=== PATIENT | female | born 1945 | race Caucasian/White ===

== ENCOUNTER 2019-03-15 17:55 | Emergency (ER) | payer MEDICARE, OTHER ==
[~2019-03-15] VITALS: Ht 157.5 cm; Wt 60.2 kg
[~2019-03-15 17:55] MED LIST: ARIP15TA3 PO; ATOR10TA PO; LEVO100T78 PO; LORA-660 PO; NITR100C6 PO
[2019-03-15 18:04] VITALS: BP 120/61
[2019-03-15] MEDS ORDERED: SULF1TAB49 PO (18:30)
[2019-03-15] MEDS ORDERED: CEPH-572 PO (18:30)
== END 2019-03-15 18:39 | disposition home or self-care (01) ==
LOC: ER 17:56
DX: L08.89 Other specified local infections of the skin and subcutaneous tissue (principal); E78.00 Pure hypercholesterolemia, unspecified; E03.9 Hypothyroidism, unspecified; G89.29 Other chronic pain; Z86.14 Personal history of Methicillin resistant Staphylococcus aureus infection; Z88.1 Allergy status to other antibiotic agents; Z79.899 Other long term (current) drug therapy
CPT/HCPCS: 99283

== ENCOUNTER 2020-02-09 12:01 | Emergency (ER) | payer MEDICARE, OTHER ==
[~2020-02-09] VITALS: Ht 154.9 cm; Wt 59.1 kg
[2020-02-09 12:48] VITALS: BP 145/72
== END 2020-02-09 14:02 | disposition home or self-care (01) ==
LOC: ER 12:01
DX: B34.9 Viral infection, unspecified (principal); Z20.828 Contact with and (suspected) exposure to other viral communicable diseases; E78.00 Pure hypercholesterolemia, unspecified; E03.9 Hypothyroidism, unspecified; G89.29 Other chronic pain; Z86.14 Personal history of Methicillin resistant Staphylococcus aureus infection; Z98.890 Other specified postprocedural states; Z79.899 Other long term (current) drug therapy; Z88.1 Allergy status to other antibiotic agents
CPT/HCPCS: 36415; 99282; 99283

== ENCOUNTER 2021-06-01 17:15 | Emergency (ER) | payer MEDICARE, OTHER ==
[~2021-06-01] VITALS: Ht 154.9 cm; Wt 63.4 kg
[~2021-06-01 17:15] MED LIST changes: +LORA-657 PO; -LORA-660 PO
[2021-06-01 17:52] LABS: ALANINE AMINOTRANSFERASE 30 U/L (12-78); ALKALINE PHOSPHATASE 72 IU/L (46-116); ANION GAP 8 (8-16); ASPARTATE AMINO TRANSFERASE 17 U/L (10-37); BILIRUBIN,TOTAL 0.2 MG/DL (0.1-1.0); BLOOD UREA NITROGEN 21 MG/DL (7-18); CALCIUM 9.5 MG/DL (8.5-10.1); CHLORIDE 102 MMOL/L (99-107); CREATININE 0.75 MG/DL (0.40-0.90); GLUCOSE 129 MG/DL (70-104); POTASSIUM 3.4 MMOL/L (3.5-5.1); SODIUM 133 MMOL/L (135-145); eGFR 75 ML/MIN
[2021-06-01 17:55] LABS: BASOPHILS % (AUTO) 0.3 % (0-1); EOSINOPHILS % (AUTO) 0.5 % (0-6); NEUTROPHILS # (AUTO) 5.9 X10'3 (1.8-7.7); RED BLOOD COUNT 3.95 X10'6 (4.20-5.60)
[2021-06-01 17:56] LABS: HEMATOCRIT 39.7 % (35.0-45.0); HEMOGLOBIN 13.3 g/dl (12.0-16.0); LYMPHOCYTES # (AUTO) 1.4 X10'3 (1.1-4.8); LYMPHOCYTES % (AUTO) 17.9 % (21-51); MEAN CORPUSCULAR HEMOGLOBIN 33.7 PG (27.0-31.0); MEAN CORPUSCULAR HGB CONC 33.5 g/dL (33.0-36.5); MEAN CORPUSCULAR VOLUME 100.5 FL (78-98); MONOCYTES # (AUTO) 0.5 X10'3 (0-0.9); MONOCYTES % (AUTO) 6.6 % (2-12); NEUTROPHILS % (AUTO) 74.7 % (42-75); PLATELET COUNT 187 X10'3 (140-440); RED CELL DISTRIBUTION WIDTH 13.3 % (11.5-14.5); WHITE BLOOD COUNT 7.9 X10'3 (4.5-11.0)
[2021-06-01] MEDS ORDERED: cephalexin 250mg capsule PO ONE (20:00)
[2021-06-01] MEDS ORDERED: sulfamethoxazole/trimethoprim DS (800/160mg) tablet PO ONE (20:00)
[2021-06-01] MEDS ORDERED: SULF1TAB49 PO (20:04)
[2021-06-01] MEDS ORDERED: CEPH-585 PO (20:04)
[2021-06-01 20:30] VITALS: BP 130/57
[2021-06-01 22:03] LABS: ANISOCYTOSIS 1+; LARGE PLATELETS FEW; PLATELET ESTIMATE NORMAL
== END 2021-06-01 20:31 | disposition home or self-care (01) ==
LOC: ER 17:16
DX: L03.116 Cellulitis of left lower limb (principal); E78.00 Pure hypercholesterolemia, unspecified; E03.9 Hypothyroidism, unspecified; G89.29 Other chronic pain; Z86.14 Personal history of Methicillin resistant Staphylococcus aureus infection; Z88.1 Allergy status to other antibiotic agents; Z79.2 Long term (current) use of antibiotics; Z79.899 Other long term (current) drug therapy
CPT/HCPCS: 36415; 80053; 85008; 85025; 99283

== ENCOUNTER 2021-06-09 09:38 | Emergency (ER) | payer MEDICARE, OTHER ==
[~2021-06-09] VITALS: Ht 154.9 cm; Wt 63.3 kg
[~2021-06-09 09:38] MED LIST changes: +CEPH-585 PO; +SULF1TAB49 PO
[2021-06-09] MEDS ORDERED: LIDOcaine 5% patch TP ONE (10:25)
[2021-06-09] MEDS ORDERED: BUPIVAcaine/PF 7.5mg/ml (0.75%) 10ml vial IJ ONE (10:25)
--- NOTE | 2021-06-09 11:02 | NUR ---
Pt resting comfortably in bed, no needs.
[2021-06-09 11:34] VITALS: BP 113/54
== END 2021-06-09 11:42 | disposition home or self-care (01) ==
LOC: ER 09:39
DX: M25.511 Pain in right shoulder (principal); E78.00 Pure hypercholesterolemia, unspecified; E03.9 Hypothyroidism, unspecified; G89.29 Other chronic pain; Z86.14 Personal history of Methicillin resistant Staphylococcus aureus infection; Z98.890 Other specified postprocedural states; Z88.1 Allergy status to other antibiotic agents; Z79.899 Other long term (current) drug therapy; Z79.2 Long term (current) use of antibiotics
CPT/HCPCS: 20552; 73030; 99284

== ENCOUNTER 2021-06-29 12:29 | Emergency (ER) | payer MEDICARE, OTHER ==
[~2021-06-29] VITALS: Ht 154.9 cm; Wt 59.1 kg
[~2021-06-29 12:29] MED LIST changes: -SULF1TAB49 PO
[2021-06-29 12:30] VITALS: BP 132/69
[2021-06-29] MEDS ORDERED: triamcinolone acetonide 40mg/ml inj IM ONE (13:45)
[2021-06-29] MEDS ORDERED: CYCL-1 PO (13:53)
== END 2021-06-29 14:16 | disposition home or self-care (01) ==
LOC: ER 12:30
DX: M25.511 Pain in right shoulder (principal); M54.2 Cervicalgia; R25.2 Cramp and spasm; E78.00 Pure hypercholesterolemia, unspecified; E03.9 Hypothyroidism, unspecified; G89.29 Other chronic pain; Z86.14 Personal history of Methicillin resistant Staphylococcus aureus infection; Z88.1 Allergy status to other antibiotic agents; Z79.899 Other long term (current) drug therapy; Z79.2 Long term (current) use of antibiotics
CPT/HCPCS: 96372; 99283; J3301

== ENCOUNTER 2021-09-03 12:03 | Emergency (ER) | payer MEDICARE, OTHER ==
[~2021-09-03] VITALS: Ht 157.5 cm; Wt 59.1 kg
[~2021-09-03 12:03] MED LIST changes: +CYCL-1 PO
[2021-09-03 12:23] VITALS: BP 112/53
[2021-09-03] MEDS ORDERED: ketorolac trometh inj. 60 MG/2 ML VIAL IM ONE (13:45)
[2021-09-03] MEDS ORDERED: METH-797 PO (15:10)
[2021-09-03] MEDS ORDERED: oxyCODONE IR 5mg (immed. release) tablet PO ONE (15:25)
== END 2021-09-03 15:32 | disposition home or self-care (01) ==
LOC: ER 12:03
DX: S29.012A Strain of muscle and tendon of back wall of thorax, initial encounter (principal); E78.00 Pure hypercholesterolemia, unspecified; E03.9 Hypothyroidism, unspecified; G89.29 Other chronic pain; Z98.890 Other specified postprocedural states; Z79.899 Other long term (current) drug therapy; Z88.1 Allergy status to other antibiotic agents; X50.1XXA Overexertion from prolonged static or awkward postures, initial encounter; Y93.89 Activity, other specified; Y92.89 Other specified places as the place of occurrence of the external cause; Y99.9 Unspecified external cause status
CPT/HCPCS: 96372; 99284; J1885

== ENCOUNTER 2021-11-23 12:51 | Emergency (ER) | payer MEDICARE, OTHER ==
[~2021-11-23] VITALS: Ht 154.9 cm; Wt 59.1 kg
[~2021-11-23 12:51] MED LIST changes: +METH-797 PO
[2021-11-23 13:27] VITALS: BP 124/64
[2021-11-23] MEDS ORDERED: ibuprofen 200mg tablet PO ONE (15:15)
[2021-11-23] MEDS ORDERED: IBUP-1984 PO (15:58)
== END 2021-11-23 16:14 | disposition home or self-care (01) ==
LOC: ER 12:52
DX: S80.02XA Contusion of left knee, initial encounter (principal); S80.01XA Contusion of right knee, initial encounter; M65.261 Calcific tendinitis, right lower leg; Y99.8 Other external cause status; G89.29 Other chronic pain; M54.9 Dorsalgia, unspecified; E78.00 Pure hypercholesterolemia, unspecified; E03.9 Hypothyroidism, unspecified; F32.A Depression, unspecified; Z88.1 Allergy status to other antibiotic agents; Z79.899 Other long term (current) drug therapy; Z79.1 Long term (current) use of non-steroidal anti-inflammatories (NSAID); Z86.14 Personal history of Methicillin resistant Staphylococcus aureus infection; X58.XXXA Exposure to other specified factors, initial encounter; Y93.89 Activity, other specified; Y92.89 Other specified places as the place of occurrence of the external cause
CPT/HCPCS: 73564; 93971; 99284; A6449

== ENCOUNTER 2021-12-07 17:10 | Emergency (ER) | payer MEDICARE, OTHER ==
[~2021-12-07] VITALS: Ht 154.9 cm; Wt 59.1 kg
[2021-12-07 17:22] VITALS: BP 116/75
== END 2021-12-07 19:25 | disposition left against medical advice (07) ==
LOC: ER 17:11
DX: M25.571 Pain in right ankle and joints of right foot (principal); Z53.21 Procedure and treatment not carried out due to patient leaving prior to being seen by health care provider

== ENCOUNTER → 2022-05-30 | Day surgery (SDC) | payer MEDICARE, OTHER ==
[2022-05-21 14:34] LABS: BASOPHILS % (AUTO) 0.3 % (0-1); EOSINOPHILS % (AUTO) 0.5 % (0-6); LYMPHOCYTES # (AUTO) 1.9 X10'3 (1.1-4.8); LYMPHOCYTES % (AUTO) 26.9 % (21-51); MEAN CORPUSCULAR HEMOGLOBIN 32.1 PG (27.0-31.0); MEAN CORPUSCULAR HGB CONC 33.3 g/dL (33.0-36.5); MEAN CORPUSCULAR VOLUME 96.3 FL (78-98); MONOCYTES # (AUTO) 0.4 X10'3 (0-0.9); MONOCYTES % (AUTO) 5.8 % (2-12); NEUTROPHILS # (AUTO) 4.8 X10'3 (1.8-7.7); NEUTROPHILS % (AUTO) 66.5 % (42-75); PRE OP HEMATOCRIT 39.7 % (35.0-45.0); PRE OP HEMOGLOBIN 13.2 g/dL (12.0-16.0); PRE OP PLATELET COUNT 183 X10'3 (140-440); RED BLOOD COUNT 4.12 X10'6 (4.20-5.60); RED CELL DISTRIBUTION WIDTH 14.8 % (11.5-14.5)
[2022-05-21 14:39] LABS: ALBUMIN 4.1 G/DL (3.4-5.0); ALBUMIN/GLOBULIN RATIO 1.2 (1.1-1.5); ALKALINE PHOSPHATASE 88 IU/L (46-116); BLOOD UREA NITROGEN 27 MG/DL (7-18); BUN/CREATININE RATIO 31.4 (6.6-38.0); CHLORIDE 104 MMOL/L (99-107); CREATININE 0.86 MG/DL (0.40-0.90); PRE OP ALT 29 U/L (30-65); PRE OP ANION GAP 7 (8-16); PRE OP AST 16 U/L (10-37); PRE OP BILIRUB, TOTAL 0.3 MG/DL (0.0-1.0); PRE OP GLUCOSE 124 MG/DL (70-104); PRE OP POTASSIUM 3.4 MMOL/L (3.4-5.1); PRE OP SODIUM 139 MMOL/L (135-145); TOTAL CARBON DIOXIDE 27.7 MMOL/L (24-32); TOTAL PROTEIN 7.6 G/DL (6.4-8.2); eGFR 64 ML/MIN
[2022-05-21 15:09] LABS: LARGE PLATELETS FEW; PLATELET ESTIMATE NORMAL
[~2022-05-30] VITALS: Ht 154.9 cm; Wt 61.2 kg
[~2022-05-30] MED LIST changes: +ARIPIPRAZOLE 15 MG TABLET PO SCH; -ATOR10TA PO; +ATOR40TA72 PO; -CEPH-585 PO; -CYCL-1 PO; +FURO40TA4 PO; +HYDROcodone/acetaminophen 10/325mg tab PO PRN; +HYDROmorphone 1 mg/ml syringe IV PRN; +HYDROmorphone inj. 0.5 MG/0.5 ML DISP.SYRIN IV PRN; -LEVO100T78 PO; +LEVO75TA7 PO; -LORA-657 PO; -METH-797 PO; -NITR100C6 PO; +acetaminophen 325mg tablet PO ONE; +acetaminophen 325mg tablet PO PRN; +ascorbic acid 500mg tablet PO SCH; +aspirin 325mg tablet PO SCH; +atorvastatin 20mg tablet PO SCH; +bisacodyl 10mg suppository rectal RC PRN; +ceFAZolin/D5W- 1GM premix 50 ML IV SCH; +cefazolin 2gm/D5W 100mL 100 ML IV ONE; +celeCOXIB 100mg capsule PO ONE; +celeCOXIB 100mg capsule PO SCH; +diphenhydrAMINE 25mg capsule PO PRN; +famotidine 20mg tablet PO ONE; +furosemide 40mg tablet PO SCH; +gabapentin 300mg capsule PO ONE; +gabapentin 300mg capsule PO SCH; +levoTHYROXINE 75mcg tablet PO SCH; +magnesium hydroxide 30ml (MOM) UD suspension PO PRN; +metoclopramide 5 mg/ml inj IV ONE; +multivitamins, therapeutics tablet PO SCH; +naloxone 0.4 mg/ml inj IV PRN; +ondansetron/PF 4mg/2ml inj IV PRN; +oxyCODONE SR 10mg (sust. release) tab -2 tabs (20mg) PO ONE; +potassium cl 20mEq in 1/2 NS 1,000 ML IV SCH; +ringers solution, lacted 1,000 ML IV SCH; +sennosides 8.6mg tablet PO SCH; +tranexamic acid inj. 0 MG in normal saline 100ml IV soln 100 ML IV ONE; +tranexamic acid inj. 1,000 MG in normal saline IV soln 100ML IV ONE; +vancomycin/NS 1 GM ADD-VANTAGE 250 ML IV SCH; +vancomycin/NS 1 GM in NS 250 ML IV ONE
== END | disposition home or self-care (01) ==
LOC: PAS 06:54
PROVIDERS: ATTEND Orthopaedic Surgery
DX: M17.11 Unilateral primary osteoarthritis, right knee (principal); Z53.8 Procedure and treatment not carried out for other reasons; M19.072 Primary osteoarthritis, left ankle and foot; M19.011 Primary osteoarthritis, right shoulder; M16.11 Unilateral primary osteoarthritis, right hip; F39 Unspecified mood [affective] disorder; E03.9 Hypothyroidism, unspecified; Z88.8 Allergy status to other drugs, medicaments and biological substances; Z90.710 Acquired absence of both cervix and uterus; Z98.890 Other specified postprocedural states; Z72.89 Other problems related to lifestyle; Z79.899 Other long term (current) drug therapy; Z79.82 Long term (current) use of aspirin; Z91.040 Latex allergy status; Z88.0 Allergy status to penicillin; Z82.49 Family history of ischemic heart disease and other diseases of the circulatory system
CPT/HCPCS: 36415; 80053; 85025; 86885; 86900; 86901; 87081; J3490; J7120; 85008

== ENCOUNTER 2022-07-27 13:20 | Emergency (ER) | payer MEDICARE, OTHER ==
[~2022-07-27] VITALS: Ht 157.5 cm; Wt 61.0 kg
[~2022-07-27 13:20] MED LIST changes: -ARIPIPRAZOLE 15 MG TABLET PO SCH; -HYDROcodone/acetaminophen 10/325mg tab PO PRN; -HYDROmorphone 1 mg/ml syringe IV PRN; -HYDROmorphone inj. 0.5 MG/0.5 ML DISP.SYRIN IV PRN; -acetaminophen 325mg tablet PO ONE; -acetaminophen 325mg tablet PO PRN; -ascorbic acid 500mg tablet PO SCH; -aspirin 325mg tablet PO SCH; -atorvastatin 20mg tablet PO SCH; -bisacodyl 10mg suppository rectal RC PRN; -ceFAZolin/D5W- 1GM premix 50 ML IV SCH; -cefazolin 2gm/D5W 100mL 100 ML IV ONE; -celeCOXIB 100mg capsule PO ONE; -celeCOXIB 100mg capsule PO SCH; -diphenhydrAMINE 25mg capsule PO PRN; -famotidine 20mg tablet PO ONE; -furosemide 40mg tablet PO SCH; -gabapentin 300mg capsule PO ONE; -gabapentin 300mg capsule PO SCH; -levoTHYROXINE 75mcg tablet PO SCH; -magnesium hydroxide 30ml (MOM) UD suspension PO PRN; -metoclopramide 5 mg/ml inj IV ONE; -multivitamins, therapeutics tablet PO SCH; -naloxone 0.4 mg/ml inj IV PRN; -ondansetron/PF 4mg/2ml inj IV PRN; -oxyCODONE SR 10mg (sust. release) tab -2 tabs (20mg) PO ONE; -potassium cl 20mEq in 1/2 NS 1,000 ML IV SCH; -ringers solution, lacted 1,000 ML IV SCH; -sennosides 8.6mg tablet PO SCH; -tranexamic acid inj. 0 MG in normal saline 100ml IV soln 100 ML IV ONE; -tranexamic acid inj. 1,000 MG in normal saline IV soln 100ML IV ONE; -vancomycin/NS 1 GM ADD-VANTAGE 250 ML IV SCH; -vancomycin/NS 1 GM in NS 250 ML IV ONE
[2022-07-27 13:24] VITALS: BP 124/60
[2022-07-27] MEDS ORDERED: TRAM50TA2 PO (16:07)
--- NOTE | 2022-07-28 11:40 | NUR ---
0950-PATIENT CALLED IN REGARDING [facility] IN [place] IS NOT OPEN TODAY AND SHE NEEDS TO SALES CORRESPONDENT RX FOR PAIN MED. PATIENT WOULD LIKE MED CALLED IN TO [facility] IN [place]. 1030-[facility] IN [place] IS CLOSED TODAY. 1040-[facility] TO [facility] [address]. STAFF THERE STATES THAT THE [facility] IN [facility] WILL BE OPENING AT 1100 TODAY. 1045-PATIENT CALLED AND INFORMED THAT [facility] IN [place] WILL BE OPENING AFTER 1100. 1130-TELEPHONE CALL FROM [facility] IN [place]. STAFF IS INFORMING THAT PATIENT IS CURRENTLY TAKING PERCOCET RX FOR PAIN (WITH REFILLS). TRAMADOL RX WILL NOT BE FILLED AT THIS TIME.
== END 2022-07-27 16:27 | disposition home or self-care (01) ==
LOC: ER 13:21
DX: S80.01XA Contusion of right knee, initial encounter (principal); S80.02XA Contusion of left knee, initial encounter; E03.9 Hypothyroidism, unspecified; E78.00 Pure hypercholesterolemia, unspecified; G89.29 Other chronic pain; M54.9 Dorsalgia, unspecified; F32.A Depression, unspecified; Z86.14 Personal history of Methicillin resistant Staphylococcus aureus infection; Z88.1 Allergy status to other antibiotic agents; Z79.899 Other long term (current) drug therapy; W18.30XA Fall on same level, unspecified, initial encounter; Y93.89 Activity, other specified; Y92.89 Other specified places as the place of occurrence of the external cause; Y99.8 Other external cause status
CPT/HCPCS: 73564; 99284

== ENCOUNTER 2023-04-17 15:26 | Emergency (ER) | payer MEDICARE, OTHER ==
[~2023-04-17] VITALS: Ht 152.4 cm; Wt 61.3 kg
[~2023-04-17 15:26] MED LIST changes: +ACET-1084 PO; +BACL-11 PO; +IBUP-1985 PO; +TRAZ-251 PO; +VENL37.589 PO
[2023-04-17 17:30] VITALS: BP 176/95; PULSE 115; RESP 33; O2SAT 95
[2023-04-17 17:44] LABS: LYMPHOCYTES # (AUTO) 0.7 X10'3 (1.1-4.8); NEUTROPHILS # (AUTO) 13.1 X10'3 (1.8-7.7); WHITE BLOOD COUNT 14.2 X10'3 (4.5-11.0)
[2023-04-17 17:45] LABS: BASOPHILS % (AUTO) 0.1 % (0-1); EOSINOPHILS % (AUTO) 0.1 % (0-6); HEMATOCRIT 37.6 % (35.0-45.0); HEMOGLOBIN 12.4 g/dl (12.0-16.0); LYMPHOCYTES % (AUTO) 5.1 % (21-51); MEAN CORPUSCULAR HEMOGLOBIN 31.4 PG (27.0-31.0); MEAN CORPUSCULAR HGB CONC 32.9 g/dL (33.0-36.5); MEAN CORPUSCULAR VOLUME 95.5 FL (78-98); MEAN PLATELET VOLUME 11.2 FL (7.4-10.4); MONOCYTES # (AUTO) 0.3 X10'3 (0-0.9); MONOCYTES % (AUTO) 2.4 % (2-12); NEUTROPHILS % (AUTO) 92.3 % (42-75); PLATELET COUNT 154 X10'3 (140-440); RED BLOOD COUNT 3.94 X10'6 (4.20-5.60)
[2023-04-17 18:06] LABS: ALANINE AMINOTRANSFERASE 39 U/L (12-78); ALBUMIN 3.8 G/DL (3.4-5.0); ALBUMIN/GLOBULIN RATIO 1.2 (1.1-1.5); ALKALINE PHOSPHATASE 68 IU/L (46-116); ANION GAP 11 (8-16); ASPARTATE AMINO TRANSFERASE 22 U/L (10-37); BILIRUBIN,TOTAL 0.3 MG/DL (0.1-1.0); BLOOD UREA NITROGEN 0 MG/DL (7-18); CHLORIDE 102 MMOL/L (99-107); MAGNESIUM 2.3 MG/DL (1.5-2.4); POTASSIUM 3.8 MMOL/L (3.5-5.1); PRO BRAIN NATRIURETIC PEPTIDE 225 PG/ML (0-450); SODIUM 138 MMOL/L (135-145); TOTAL CARBON DIOXIDE 25.1 MMOL/L (24-32)
[2023-04-17 18:23] LABS: CALCIUM 8.7 MG/DL (8.5-10.1); CREATININE 0.73 MG/DL (0.40-0.90); GLUCOSE 109 MG/DL (70-104); eCRCL 46 ML/MIN; eGFR 77 ML/MIN
[2023-04-18 05:41] VITALS: TEMP 98
== END 2023-04-18 05:45 | disposition home or self-care (01) ==
LOC: ER 15:27
DX: I49.9 Cardiac arrhythmia, unspecified (principal); E78.00 Pure hypercholesterolemia, unspecified; E03.9 Hypothyroidism, unspecified; G89.29 Other chronic pain; Z95.5 Presence of coronary angioplasty implant and graft; Z86.14 Personal history of Methicillin resistant Staphylococcus aureus infection; Z88.0 Allergy status to penicillin; Z88.1 Allergy status to other antibiotic agents; Z91.040 Latex allergy status; Z79.899 Other long term (current) drug therapy
CPT/HCPCS: 36415; 71045; 80053; 83735; 83880; 84484; 85025; 93005; 99285

== ENCOUNTER 2024-03-26 10:56 | Emergency (ER) | payer MEDICARE, OTHER ==
[~2024-03-26] VITALS: Ht 152.4 cm; Wt 63.6 kg
[2024-03-26] MEDS: ondansetron 4mg rapidly disintigrating tab PO ONE (12:29)
[2024-03-26] MEDS: HYDROmorphone inj. 0.5 MG/0.5 ML DISP.SYRIN IM ONE (12:29)
[2024-03-26 13:21] VITALS: BP 125/76; PULSE 79; RESP 16; TEMP 98; O2SAT 99
== END 2024-03-26 13:23 | disposition home or self-care (01) ==
LOC: ER 10:57
DX: M25.511 Pain in right shoulder (principal); E78.00 Pure hypercholesterolemia, unspecified; E03.9 Hypothyroidism, unspecified; G89.29 Other chronic pain; M54.9 Dorsalgia, unspecified; I25.2 Old myocardial infarction; F32.A Depression, unspecified; Z98.890 Other specified postprocedural states; Z88.0 Allergy status to penicillin; Z88.1 Allergy status to other antibiotic agents; Z91.040 Latex allergy status; Z79.899 Other long term (current) drug therapy
CPT/HCPCS: 73030; 96372; 99283; J1171

== ENCOUNTER 2024-03-30 09:38 | Outpatient (CLI) | payer MEDICARE, OTHER | END 2024-03-30 23:59 | disposition home or self-care (01) | LOC: RAD 09:38 | PROVIDERS: ATTEND Orthopaedic Surgery | DX: M19.011 Primary osteoarthritis, right shoulder (principal); M25.511 Pain in right shoulder; J43.9 Emphysema, unspecified; Z96.611 Presence of right artificial shoulder joint | CPT/HCPCS: 73200 ==

== ENCOUNTER 2024-05-04 07:30 | Inpatient (IN) | payer MEDICARE, OTHER ==
[~2024-05-04] VITALS: Ht 152.4 cm; Wt 68.7 kg
[~2024-05-04 07:30] MED LIST changes: -ACET-1084 PO; -BACL-11 PO; -IBUP-1985 PO; -TRAZ-251 PO
[2024-05-24 14:25] LABS: EOSINOPHILS # (AUTO) 0.1 X10'3 (0-0.9); LYMPHOCYTES # (AUTO) 1.9 X10'3 (1.1-4.8)
[2024-05-24 14:26] LABS: BASOPHILS % (AUTO) 0.5 % (0-1); EOSINOPHILS % (AUTO) 0.9 % (0-6); LYMPHOCYTES % (AUTO) 24.7 % (21-51); MEAN CORPUSCULAR HEMOGLOBIN 31.6 PG (27.0-31.0); MEAN CORPUSCULAR HGB CONC 32.4 g/dL (33.0-36.5); MEAN CORPUSCULAR VOLUME 97.4 FL (78-98); MEAN PLATELET VOLUME 10.6 FL (7.4-10.4); MONOCYTES # (AUTO) 0.5 X10'3 (0-0.9); MONOCYTES % (AUTO) 6.3 % (2-12); NEUTROPHILS # (AUTO) 5.3 X10'3 (1.8-7.7); NEUTROPHILS % (AUTO) 67.6 % (42-75); PRE OP HEMOGLOBIN 12.6 g/dL (12.0-16.0); PRE OP PLATELET COUNT 229 X10'3 (140-440); PRE OP WHITE BLOOD COUNT 7.9 10'3 (4.8-10.8); RED CELL DISTRIBUTION WIDTH 14.6 % (11.5-14.5)
[2024-05-24 14:36] LABS: ALBUMIN/GLOBULIN RATIO 1.1 (1.1-1.5); ALKALINE PHOSPHATASE 94 IU/L (46-116); BLOOD UREA NITROGEN 20 MG/DL (7-18); BUN/CREATININE RATIO 30.3 (10.0-20.0); CALCIUM 8.8 MG/DL (8.5-10.1); CHLORIDE 104 MMOL/L (99-107); CREATININE 0.66 MG/DL (0.40-0.90); PRE OP ALT 32 U/L (30-65); PRE OP ANION GAP 11 (8-16); PRE OP AST 16 U/L (10-37); PRE OP BILIRUB, TOTAL 0.2 MG/DL (0.0-1.0); PRE OP GLUCOSE 94 MG/DL (70-104); PRE OP POTASSIUM 3.9 MMOL/L (3.4-5.1); PRE OP SODIUM 139 MMOL/L (135-145); TOTAL CARBON DIOXIDE 24.1 MMOL/L (24-32); TOTAL PROTEIN 7.5 G/DL (6.4-8.2); eGFR 87 ML/MIN
[2024-05-24 15:10] LABS: PLATELET ESTIMATE NORMAL
[2024-05-24 15:11] LABS: GIANT PLATELET FEW; LARGE PLATELETS FEW
[2024-05-28] VITALS (28 sets, daily range): BP systolic 98–141; BP diastolic 37–87; PULSE 51–75; RESP 11–19; TEMP 97.2–98.4; O2SAT 94–99
[2024-05-28] MEDS: ceFAZolin 2gm in dextrose, iso 50 ML IV ONE (05:30)
[2024-05-28] MEDS: ringers solution, lacted 1,000 ML IV SCH ×2 (08:26→10:35)
[2024-05-28] MEDS: famotidine 20mg tablet PO ONE (08:26)
[2024-05-28] MEDS: tranexamic acid 650mg tablet PO ONE (08:34)
[2024-05-28] MEDS: vancomycin/NS 1 GM ADD-VANTAGE 250 ML IV ONE (08:40)
[2024-05-28] MEDS ORDERED: vancomycin 1,000mg inj ONE (08:47)
[2024-05-28] MEDS ORDERED: ROPIVAcaine 0.5% (5mg/ml) 30ml vial ONE (08:48)
[2024-05-28] MEDS ORDERED: sevoflurane 250ml liquid IH ONE (09:50)
[2024-05-28] MEDS ORDERED: midazolam 1 mg/ML 2ml injection ONE (10:01)
[2024-05-28] MEDS ORDERED: fentaNYL /PF 50mcg/ml 5ml ampule ONE (10:27)
[2024-05-28] MEDS ORDERED: proCHLORperazine 10 MG/2 ml inj IV PRN (10:35)
[2024-05-28] MEDS ORDERED: ondansetron/PF 4mg/2ml inj IV PRN ×2 (10:35→13:05)
[2024-05-28] MEDS ORDERED: morphine 4 MG/ML inj SYRINge IV PRN (10:35)
[2024-05-28] MEDS ORDERED: hydrALAZINE 20mg/ml inj. IV PRN (10:35)
[2024-05-28] MEDS ORDERED: meperidine/PF 25mg/ml syringe IV PRN (10:35)
[2024-05-28] MEDS ORDERED: morphine 2 MG/ML inj. syringe IV PRN (10:35)
[2024-05-28] MEDS ORDERED: HYDROmorphone/PF 0.2 MG/ML SYRINGE IV PRN (10:35)
[2024-05-28] MEDS ORDERED: labetalol 20mg/4ml (5mg/ml) syringe IV PRN (10:35)
[2024-05-28] MEDS ORDERED: LIDOcaine 2% (20mg/ml) 5ml vial ONE (10:37)
[2024-05-28] MEDS ORDERED: ondansetron/PF 4mg/2ml inj ONE (10:37)
[2024-05-28] MEDS ORDERED: propofol inj 20 ML IV ONE (10:37)
[2024-05-28] MEDS ORDERED: dexamethasone sod phosphate 4mg/ml inj. ONE (10:38)
[2024-05-28] MEDS ORDERED: rocuronium 10mg/ml inj IV ONE (10:38)
[2024-05-28] MEDS: BUPIVACAINE/MELOXICAM 14 ML VIAL IL ONE (11:01)
[2024-05-28] MEDS ORDERED: glycopyrrolate 0.2mg/ml inj ONE (11:48)
[2024-05-28] MEDS ORDERED: neostigmine methylsulfate 1 MG/ML 10ml vial ONE (11:49)
[2024-05-28] MEDS: acetaminophen 1,000mg/100ml IV 100 ML IV PRN (12:41)
[2024-05-28] MEDS: HYDROmorphone/PF 0.2 MG/ML SYRINGE IV PRN (12:42)
[2024-05-28] MEDS ORDERED: diphenhydrAMINE 25mg capsule PO PRN ×2 (13:05)
[2024-05-28] MEDS ORDERED: acetaminophen 325mg tablet PO PRN (13:05)
[2024-05-28] MEDS ORDERED: magnesium hydroxide 30ml (MOM) UD suspension PO PRN (13:05)
[2024-05-28] MEDS ORDERED: bisacodyl 10mg suppository rectal RC PRN (13:05)
[2024-05-28] MEDS ORDERED: naloxone 0.4 mg/ml inj IV PRN (13:05)
[2024-05-28] MEDS ORDERED: HYDROmorphone 1 mg/ml syringe IV PRN (13:05)
[2024-05-28] MEDS: acetaminophen 325mg tablet PO SCH (16:08)
[2024-05-28] MEDS: potassium cl 20mEq in 1/2 NS 1,000 ML IV SCH (16:09)
[2024-05-28] MEDS: ceFAZolin/D5W- 1GM premix 50 ML IV SCH (16:09)
[2024-05-28] MEDS: oxyCODONE IR 5mg (immed. release) tablet PO PRN (17:33)
[2024-05-28] MEDS: sennosides 8.6mg tablet PO SCH (20:27)
[2024-05-28] MEDS: vancomycin/NS 1 GM ADD-VANTAGE 250 ML IV SCH (20:29)
[2024-05-28] MEDS: HYDROmorphone inj. 0.5 MG/0.5 ML DISP.SYRIN IV PRN (21:48)
[2024-05-29] MEDS: oxyCODONE IR 5mg (immed. release) tablet PO PRN (01:52)
[2024-05-29 02:00] VITALS: BP 142/95; PULSE 55; RESP 18; TEMP 97.6; O2SAT 95
[2024-05-29 06:00] VITALS: BP 109/43; PULSE 59; RESP 16; TEMP 96.8; O2SAT 99
[2024-05-29 06:31] LABS: BASOPHILS % (AUTO) 0.1 % (0-1); EOSINOPHILS % (AUTO) 0.1 % (0-6); HEMATOCRIT 31.3 % (35.0-45.0); HEMOGLOBIN 10.3 g/dl (12.0-16.0); LYMPHOCYTES # (AUTO) 1.3 X10'3 (1.1-4.8); LYMPHOCYTES % (AUTO) 9.8 % (21-51); MEAN CORPUSCULAR HEMOGLOBIN 32.1 PG (27.0-31.0); MEAN CORPUSCULAR HGB CONC 32.9 g/dL (33.0-36.5); MEAN CORPUSCULAR VOLUME 97.6 FL (78-98); MEAN PLATELET VOLUME 11.2 FL (7.4-10.4); MONOCYTES % (AUTO) 7.4 % (2-12); NEUTROPHILS # (AUTO) 11.2 X10'3 (1.8-7.7); NEUTROPHILS % (AUTO) 82.6 % (42-75); PLATELET COUNT 169 X10'3 (140-440); RED BLOOD COUNT 3.21 X10'6 (4.20-5.60); RED CELL DISTRIBUTION WIDTH 14.6 % (11.5-14.5); WHITE BLOOD COUNT 13.6 X10'3 (4.5-11.0)
[2024-05-29 06:52] LABS: ANION GAP 7 (8-16); CHLORIDE 106 MMOL/L (99-107); POTASSIUM 4.9 MMOL/L (3.5-5.1); SODIUM 140 MMOL/L (135-145)
[2024-05-29] MEDS: levoTHYROXINE 75mcg tablet PO SCH (07:25)
[2024-05-29] MEDS: atorvastatin 20mg tablet PO SCH (07:26)
[2024-05-29] MEDS: aspirin 325mg tablet PO SCH (07:26)
[2024-05-29] MEDS: furosemide 40mg tablet PO SCH (07:27)
[2024-05-29 08:00] VITALS: RESP 16; O2SAT 99
[2024-05-29] MEDS: venlafaxine XR 37.5mg cap (Q24H) PO SCH (08:36)
[2024-05-29] MEDS: aripiprazole 15 MG tablet PO SCH (08:36)
[2024-05-29 10:00] VITALS: BP 106/47; PULSE 72; RESP 18; TEMP 98.1; O2SAT 98
[2024-05-29] MEDS ORDERED: celeCOXIB 100mg capsule PO SCH (20:00)
[2024-05-30] MEDS ORDERED: acetaminophen 325mg tablet PO PRN (18:20)
== END 2024-05-29 10:40 | disposition home health service (06) | DRG 470 ==
LOC: PAS IN 05-28 07:05 → ORTHO 4S 05-28 14:00
PROVIDERS: ADMIT Orthopaedic Surgery; ATTEND Orthopaedic Surgery
PROC: 8E0YXBZ Computer Assisted Procedure of Lower Extremity (ICD-10-PCS; 2024-05-28)
PROC: 8E0Y0CZ Robotic Assisted Procedure of Lower Extremity, Open Approach (ICD-10-PCS; 2024-05-28)
PROC: 0SRC0J9 Replacement of Right Knee Joint with Synthetic Substitute, Cemented, Open Approach (ICD-10-PCS; principal; 2024-05-28 09:50)
DX: M17.11 Unilateral primary osteoarthritis, right knee (principal); Z79.899 Other long term (current) drug therapy; Z88.0 Allergy status to penicillin; Z88.1 Allergy status to other antibiotic agents; Z91.040 Latex allergy status
CPT/HCPCS: 36415; 80051; 80053; 82948; 85008; 85025; 87081; 93005; 97110; 97116; 97161; 97530; A4215; A4618; A6449; A7000; C1713; C1776; C9088; G0378; J0131; J0690; J0735; J1100; J1171; J2003; J2250; J2405; J2704; J2710; J2795; J3010; J3370; J3480; J3490; J7120

== ENCOUNTER 2024-08-07 12:52 | Emergency (ER) | payer MEDICARE, OTHER ==
[~2024-08-07] VITALS: Ht 154.9 cm; Wt 60.5 kg
--- NOTE | 2024-08-07 13:49 | RADIOLOGY REPORT ---
EXAM: DI HIP UNILATERAL 2 VIEWS CLINICAL INDICATION: HIP PAIN TECHNIQUE: DI HIP UNILATERAL 2 VIEWS Comparison: None FINDINGS/IMPRESSION: There is no evidence of acute fracture or dislocation. Osteopenia of the osseous structures. Surgical changes with intrapedicular screws and fusion of L4-L5 seen at the edge of the study. The visualized joint space is well maintained. The alignment is anatomical. There is no radiopaque foreign body.
--- NOTE | 2024-08-07 16:30 | RADIOLOGY REPORT ---
History: left hip pain, normal xray Comparison Study: None Technique: Multidetector spiral CT of the pelvis was performed from iliac crests to pubic symphysis. 100 cc of intravenous contrast was administered during this examination. Portal venous imaging was obtained. Axial, coronal and sagittal multiplanar reformats were performed by the technologist on a separate workstation. Radiation Dose : CT Dose: CTDI volume is 23 mGy. Dose-length product is 772 mGy*cm Findings: Visualized bowel: Moderate to large colonic stool burden with mild rectal wall thickening, possibly related to stercoral colitis. The appendix is not visualized; however, no secondary findings of acut e appendicitis identified. Ascites: Absent Lymphadenopathy: No pelvic or mesenteric lymphadenopathy. Pelvis Wall and Mesentery: Unremarkable. Vasculature: The visualized abdominal aorta is normal in size and caliber. Abdominal and pelvic vess els demonstrate normal enhancement. Pelvic Organs: Unremarkable Musculoskeletal: No aggressive focal bony lesions, acute fractures or dislocation. Lumbar fixation joseph rdware is partially visualized Bladder: Unremarkable IMPRESSION: 1. No acute fracture or dislocation. 2. Moderate to large colonic stool burden with mild rectal wall thickening, possibly related to sterc oral colitis. END IMPRESSION:
--- NOTE | 2024-08-07 16:42 | Physician Documentation ---
History of Present Illness ~ Chief Complaint: Hip pain Stated Complaint: HIP PAIN Time Seen by MD: 14:47 Primary Medical Doctor: [facility] HPI 78-year-old female presenting for left hip pain. She fell onto her buttocks a week ago and developed increasing discomfort to her left lateral thigh. No fever. Denies any abdominal pain. She reports normal everyday bowel movements. No fevers Tetanus within 5 Years?: Yes (2022) Medication Reconciliation Allergies: Coded Allergies: Penicillins (Verified Allergy, Unknown, HIVES 20 YEARS AGO; KEFLEX [place], 03/26/24) latex (Verified Allergy, Unknown, TEARS SKIN, 05/27/24) levofloxacin (Verified Allergy, Unknown, HIVES, 05/27/24) Scheduled Aripiprazole* (Abilify*), 1 TABLET PO DAILY, (Reported) Atorvastatin Calcium (Atorvastatin Calcium), 1 TAB PO DAILY, (Reported) Furosemide (Furosemide), 1 TAB PO DAILY, (Reported) Levothyroxine Sodium (Levothyroxine Sodium), 1 TAB PO DAILY, (Reported) Venlafaxine Hcl (Venlafaxine Hcl Er), 1 CAP PO DAILY, (Reported) Past Medical History Past Medical History: High Cholesterol, Hypothyroidism, Chronic Back Pain, MRSA Abscess, Depression Past Surgical History: orthopedic surgeries, other Other Past Surgical History: Bilateral rotator cuff surgery, carpal tunnel surgery, back surgery Patient History: ([place]) Myocardial infarction MOTHER (79 years old - stent placed) Alcohol Use: None Drug Use: none Lives with: Spouse Lives In: Home Occupation: retired Review of Systems All Other Systems at this time: Reviewed and Negative Physical Exam Vital Signs: Temperature: 98.1, Source: Temporal, Heart Rate: 82, Respiratory Rate: 17, BP: 98/71, Pulse Oximetry: 97, Weight: 60.500 Physical Exam Well-appearing no distress Abdomen is soft nontender Left lower extremity range of motion intact tenderness left lateral thigh. Intact gait with walker Progress Results/Orders Results/Orders Orders - WADE VELEZ MD Hip Unilateral 2 Views (08/07/24 13:05) Ct Pelvis (08/07/24 ) Completed Orders - WADE VELEZ MD Hip Unilateral 2 Views (08/07/24 13:05) Ct Pelvis (08/07/24 ) Vital Signs 08/07/24 13:01 Temp 98.1 Pulse 82 Resp 17 B/P (MAP) 98/71 Pulse Ox 97 EKG/XRAY/CT/US/VASC/MRI CT : Impression CT independently interpreted shows no acute fracture Departure Disposition: HOME / SELF CARE / HOMELESS Impression: Primary Impression: Trochanteric bursitis Qualified Codes: M70.62 - Trochanteric bursitis, left hip Additional Impression: Constipation Qualified Codes: K59.00 - Constipation, unspecified Additional Impression Text Patient presents for left hip pain after fall 1 week ago. She has intact range of motion with some discomfort to her left lateral thigh. She is restricted to ambulating unassisted with a walker which is slightly worsened her baseline. X- rays unremarkable. His CT shows no acute fracture. Does show severe constipation however patient is asymptomatic. I recommended that she stay in the hospital for management of her constipation however she refuses and does not want to stay in the hospital Additional Instructions: Your CT scan showed no fracture. This is likely bursitis to the left hip. It did show severe constipation and we do highly recommend that you stay in the hospital for further evaluation and treatment of both your constipation and your hip pain however you do not want to stay in the hospital. If at any time he would like to return for treatment please come to the emergency department for further management Referrals: NO PRIMARY CARE PROVIDER (PCP) Signature Scribe Signature: na Attestation: WADE Avalos MD August 07, 2024 16:42
[2024-08-07 16:45] VITALS: BP 156/61; PULSE 55; RESP 16; TEMP 98.1; O2SAT 98
== END 2024-08-07 16:43 | disposition home or self-care (01) ==
LOC: ER 12:52
DX: M70.62 Trochanteric bursitis, left hip (principal); E03.9 Hypothyroidism, unspecified; E78.00 Pure hypercholesterolemia, unspecified; K59.00 Constipation, unspecified; Z88.0 Allergy status to penicillin; Z88.1 Allergy status to other antibiotic agents; Z88.8 Allergy status to other drugs, medicaments and biological substances
CPT/HCPCS: 72192; 73502; 99284

== ENCOUNTER 2024-10-21 16:39 | Emergency (ER) | payer MEDICARE, OTHER ==
[~2024-10-21] VITALS: Ht 157.5 cm; Wt 70.4 kg
--- NOTE | 2024-10-21 18:07 | RADIOLOGY REPORT ---
CLINICAL INDICATION: FALL AND BRUISING RIGHT TECHNIQUE: DI SHOULDER, COMPLETE (MIN 2 VWS) Comparison: DI SHOULDER, COMPLETE (MIN 2 VWS) on DOS: 03/26/24, SHOULDER, COMPLETE (MIN 2 VWS) on DOS: 06/09/21 FINDINGS/IMPRESSION: : There is no evidence of acute fracture or dislocation. Soft tissues are unremarkable. Right shoulder arthroplasty.
--- NOTE | 2024-10-21 18:07 | RADIOLOGY REPORT ---
CLINICAL INDICATION: FALL, BRUISNG, SWELLING RIGHT TECHNIQUE: DI WRIST, COMPLETE (3VW MIN) Comparison: None FINDINGS/IMPRESSION: : Subcentimeter ossific density at the distal pole of the scaphoid. This may represent a subtle avulsio n fracture. Clinical correlation advised.
--- NOTE | 2024-10-21 18:15 | RADIOLOGY REPORT ---
CT CT HEAD Indication: FALL, + HEAD STRIKE EXAM DATE: 10/21/2024 05:31 PM COMPARISON: None TECHNIQUE: CT of the head without intravenous contrast. RADIATION DOSE: CTDIvol: 50 mGy, DLP: 899 nonunion mGy*cm FINDINGS: There is no intracranial hemorrhage. There is no extra-axial fluid, mass, mass effect or midline shif t. The ventricles are midline and normal in size. Basilar cisterns are patent. Mild to moderate periv entricular and subcortical white matter chronic microvascular ischemic changes. The paranasal sinuses and mastoids are well-pneumatized. Imaged portion of the orbits are unremarkabl e. There is cortical irregularity and erosion of the left frontoparietal calvarium uncovertebral with so ft tissue emphysema. Findings are concerning for aggressive process/ neoplasm. IMPRESSION: No intracranial hemorrhage or mass effect. [id number] chronic microvascular ischemic changes. Left frontoparietal calvarial /skull outer table cortical irregularity/ erosion with adjacent soft ti ssue edema. This can be secondary to aggressive process / neoplasm, trauma, infection. Correlate cli nically. Recommend surgical, oncology consultation for further evaluation. MRI of the brain with and without contrast recommended for further evaluation
[2024-10-21 18:53] VITALS: BP 125/61; PULSE 64; RESP 16; TEMP 97.4; O2SAT 94
[2024-10-21] MEDS ORDERED: HYDR-3965 PO (21:52)
--- NOTE | 2024-10-21 21:54 | Physician Documentation ---
History of Present Illness ~ Chief Complaint: Mechanical Fall Stated Complaint: FALL Time Seen by MD: 21:15 Primary Medical Doctor: [facility] HPI 79-year-old female presents to the ED with a complaint of right wrist pain after falling earlier today. She does report a head strike but denies any blood thinners.. States that she has pain with range of motion of her right wrist. Denies any light sensitivity or changes in vision but she does report a headache Day of Fall: Oct 21, 2024 Tetanus within 5 Years?: Yes (2022) Medication Reconciliation Allergies: Coded Allergies: Penicillins (Verified Allergy, Unknown, HIVES 20 YEARS AGO; KEFLEX [place], ) >5 years, hives, treatment required, PEN-FAST 4 latex (Verified Allergy, Unknown, TEARS SKIN, 10/21/24) levofloxacin (Verified Allergy, Unknown, HIVES, 10/21/24) Scheduled Aripiprazole* (Abilify*), 1 TABLET PO DAILY, (Reported) Atorvastatin Calcium (Atorvastatin Calcium), 1 TAB PO DAILY, (Reported) Furosemide (Furosemide), 1 TAB PO DAILY, (Reported) Levothyroxine Sodium (Levothyroxine Sodium), 1 TAB PO DAILY, (Reported) Venlafaxine Hcl (Venlafaxine Hcl Er), 1 CAP PO DAILY, (Reported) Scheduled PRN Hydrocodone Bit/Acetaminophen 5/325 MG ([place] 5/325 MG), 1 TAB PO Q6H PRN for pain Past Medical History Past Medical History: High Cholesterol, Hypothyroidism, Chronic Back Pain, MRSA Abscess, Depression Past Surgical History: orthopedic surgeries, other Other Past Surgical History: Bilateral rotator cuff surgery, carpal tunnel surgery, back surgery Patient History: ([place]) Myocardial infarction MOTHER (79 years old - stent placed) Alcohol Use: None Drug Use: none Lives with: Spouse Lives In: Home Occupation: retired Review of Systems All Other Systems at this time: Reviewed and Negative ROS As stated above in the HPI, otherwise all systems are reviewed and negative. Physical Exam Vital Signs: Temperature: 97.4, Source: Oral, Heart Rate: 64, Respiratory Rate: 16, BP: 125/61, Pulse Oximetry: 94, Weight: 70.400 Oxygen Flow Rate: 0 Physical Exam General: Alert, no apparent distress. HEENT: PERRL, EOMI, no injection, moist mucous membranes. No deformities no corea signs no ecchymosis on the head Respiratory: Lungs clear, no respiratory distress. Chest: No accessory muscle use. Cardiovascular: Regular rate and rhythm, no murmurs. Extremities: Normal range of motion, no deformity. Notable ecchymosis and minor skin tears on the right wrist Neurologic: Oriented x4. Psychiatric: Normal mood and affect. Progress Results/Orders Results/Orders Orders - NEFTALI THAPA NP Ortho Orders (10/21/24 ) Completed Orders - NEFTALI THAPA NP Hydrocodone/Apap 10/325 ([place] 10/325mg (10/21/24 21:55) Vital Signs 10/21/24 10/21/24 17:20 18:53 Temp 97.4 97.4 Pulse 78 64 Resp 16 16 B/P (MAP) 140/55 125/61 (82) Pulse Ox 96 94 O2 Flow Rate 0 0 Medical Decision Making Findings This patient presents with a suspected scaphoid avulsion fracture based on my exam in the x-ray that I appreciated Going to place her in a splint advise her follow up with the ortho in treat her for a headache. Differential Dx:Considerations: Include: Closed head injury, Cardiac injury, Fracture(s), Intraabdominal injury, Pneumothorax, Cerebral contusion, Pulmonary contusion, Spine injury, Tracheal injury, Urological injury, Vascular injury, Abrasion(s), Contusion(s), Foreign body(s), Hematoma(s), Laceration(s), Encephalopathy, Other Departure Disposition: 01 HOME / SELF CARE / HOMELESS Impression: Primary Impression: Fall Additional Impressions: Scaphoid fracture Scaphoid fracture of wrist Condition: Stable Referrals: NO PRIMARY CARE PROVIDER (PCP) [facility] Prescriptions Hydrocodone Bit/Acetaminophen 5/325 MG ([place] 5/325 MG) 5 Mg/325 Mg Tablet 1 TAB PO Q6H PRN for pain, #14 TAB Prov: NFETALI THAPA NP 10/21/24 Signature Scribe Signature: g Attestation: Scribed for Neftali Thapa Np by Neftali Price NP . 10/21/24 22:59 NEFTALI THAPA NP Oct 21, 2024 21:54
[2024-10-21] MEDS ORDERED: HYDROcodone/acetaminophen 10/325mg tab PO ONE (21:55)
== END 2024-10-21 21:56 | disposition home or self-care (01) ==
LOC: ER 16:39
DX: S62.011A Displaced fracture of distal pole of navicular [scaphoid] bone of right wrist, initial encounter for closed fracture (principal); R51.9 Headache, unspecified; E03.9 Hypothyroidism, unspecified; E78.00 Pure hypercholesterolemia, unspecified; G89.29 Other chronic pain; Z88.0 Allergy status to penicillin; Z88.1 Allergy status to other antibiotic agents; Z91.040 Latex allergy status; W01.0XXA Fall on same level from slipping, tripping and stumbling without subsequent striking against object, initial encounter; Y93.89 Activity, other specified; Y92.89 Other specified places as the place of occurrence of the external cause; Y99.8 Other external cause status
CPT/HCPCS: 29125; 70450; 73030; 73110; 99284; A6258; L3908; 29130

== ENCOUNTER 2025-01-22 12:57 | Emergency (ER) | payer MEDICARE, OTHER ==
[~2025-01-22] VITALS: Ht 157.5 cm; Wt 69.8 kg
[2025-01-22 13:04] VITALS: BP 120/72; PULSE 93; RESP 16; TEMP 97.6; O2SAT 94
--- NOTE | 2025-01-22 13:59 | RADIOLOGY REPORT ---
EXAM: DI SHOULDER, COMPLETE (MIN 2 VWS) HISTORY: R/O FX,right prior hx scapula fx COMPARISON: Radiographs of the right shoulder dated 10/21/2024 TECHNIQUE: 4 views of the right shoulder. FINDINGS: There is a right reverse shoulder prosthesis. Components are well aligned and well seated. No periprosthetic fracture or lucency. IMPRESSION: 1. Right reverse shoulder prosthesis in appropriate alignment and position. No acute osseous abnormality.
--- NOTE | 2025-01-22 14:39 | Physician Documentation ---
History of Present Illness ~ Chief Complaint: Shoulder pain Stated Complaint: SHOULDER PAIN Time Seen by MD: 14:18 OK to notify your PCP?: Yes Primary Medical Doctor: [facility] Source: patient Mode of Arrival: POV Exam Limitations: no limitations HPI Presents for spontaneous right shoulder pain which occurred couple of days ago when she woke up in the morning. She reports that the pain has continued for the past couple of days. She had a shoulder replacement done by Dr. Castelan 2 years ago this coming March. She did fracture her shoulder last year. 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 She states that currently any movement is painful. She has been using ibuprofen, Percocet and Tylenol for pain relief. She said she went to physical therapy to help gain mobility back but she was not successful. Tetanus within 5 years?: Yes Medication Reconciliation Allergies: Coded Allergies: Penicillins (Verified Allergy, Unknown, HIVES 20 YEARS AGO; KEFLEX [place], 01/22/25) >5 years, hives, treatment required, PEN-FAST 4 latex (Verified Allergy, Unknown, TEARS SKIN, 01/22/25) levofloxacin (Verified Allergy, Unknown, HIVES, 01/22/25) Scheduled Aripiprazole* (Abilify*), 1 TABLET PO DAILY, (Reported) Atorvastatin Calcium (Atorvastatin Calcium), 1 TAB PO DAILY, (Reported) Furosemide (Furosemide), 1 TAB PO DAILY, (Reported) Levothyroxine Sodium (Levothyroxine Sodium), 1 TAB PO DAILY, (Reported) Venlafaxine Hcl (Venlafaxine Hcl Er), 1 CAP PO DAILY, (Reported) Past Medical History Past Medical History: High Cholesterol, Hypothyroidism, Chronic Back Pain, MRSA Abscess, Depression Past Surgical History: orthopedic surgeries, other Other Past Surgical History: Bilateral rotator cuff surgery, carpal tunnel surgery, back surgery Patient History: ([place]) Myocardial infarction MOTHER (79 years old - stent placed) Alcohol Use: None Drug Use: none Lives with: Spouse Lives In: Home Occupation: retired Review of Systems All Other Systems at this time: Reviewed and Negative Physical Exam Vital Signs: RN Vital Signs have been reviewed: Yes, Temperature: 97.6, Source: Temporal, Heart Rate: 93, Respiratory Rate: 16, BP: 120/72, Pulse Oximetry: 94, Weight: 69.800 Oxygen Flow Rate: 0 Pulse Oximetry Reflects: adequate oxygenation Physical Exam General: Alert, no distress. HEENT: No injection, moist mucous membranes. Neck: Full range of motion. Respiratory: No respiratory distress, equal chest rise and fall. Chest: No accessory muscle use. Cardiovascular: Regular rate and rhythm. Gastrointestinal: Nondistended. Extremities: Limited range motion of right shoulder, tenderness to palpation of anterior and posterior shoulder. Good CSM, good pulses, good sensation in right arm. Neurologic: Oriented x4. Psychiatric: Normal mood and affect. Skin: Normal color, warm and dry. Progress Results/Orders Reviewed/noted all lab results: Yes Results/Orders Orders - MARIA VELA Ortho Orders (01/22/25 ) Completed Orders - MARIA VELA Hydrocodone/Apap 5/325mg Tab ([place] (01/22/25 14:40) Vital Signs 01/22/25 13:04 Temp 97.6 Pulse 93 Resp 16 B/P (MAP) 120/72 Pulse Ox 94 O2 Flow Rate 0 EKG/XRAY/CT/US/VASC/MRI Bone/Soft Tissue X-Ray (Ext.) : Additional Comment Right shoulder x-ray as interpreted by me; no joint effusion, no acute fracture, no soft tissue swelling, Right reverse shoulder prosthesis in appropriate alignment and position. Medical Decision Making Additional information obtaine: old records, family Findings She had a right reverse prosthesis placed by Dr. Castelan 2 years ago. She did fracture this last year after fall. Due to her already limited range of motion at baseline, we placed a sling for her to wear intermittently throughout the door day as well as at nighttime to provide extra support when sleeping. We discussed the importance of taking the sling off multiple times a day to help move her shoulder around to help prevent worsening of her frozen shoulder. As she has already tried Tylenol and ibuprofen, without relief and she also has been taking her prescribed Percocet which she uses for her back twice daily with no relief. First dose given here rest sent to the pharmacy. She is given strict follow up instructions with Dr. Castelan as [facility] to call 1st thing Friday morning. Her x-ray shows that the prosthesis is in alignment and there is no acute fracture. We discussed this case with Dr. Chavis and he agrees that she should sees pain relief and limited use of a sling. Differential Dx:Considerations: Include: AC separation, Dislocation, Fracture: Humerus, Impingement syndrome, Neurovascular Injury, Rotator cuff injury, SC dislocation Departure Disposition: 01 HOME / SELF CARE / HOMELESS Impression: Primary Impression: Shoulder pain Condition: Stable Discharge Instructions: Shoulder Pain, [id number] Additional Instructions: Please use the sling at nighttime to provide extra support and use throughout the day only if needed. Please make sure you are free of the sling for multiple hours a day multiple times a day to prevent worsening of your frozen shoulder. Follow up with Dr. Castelan at [facility], call 1st thing Friday. Return back here for any new or worsening symptoms. You continue taking the ibuprofen as directed on the back of the bottle and Tylenol and if that is not helpful then you can resort to take your prescribed Percocet. Take care not to exceed 4000 mg of Tylenol within a 24 hour period. Can use ice, heat and rest of the shoulder. Referrals: NO PRIMARY CARE PROVIDER (PCP) Education Educated: Patient, Family Educated regarding: diagnosis, treatment, prognosis, need for follow up Additional Comment Medical Screen Exam This patient recieved a medical screening examination. After reviewing the katlyn ulrich's medical complaints with presenting symptoms and performing an appropriate physical examination, it was determined that no immediate life- threatening emergency medical condition is present. This individual is also not a women having contractions. Signature Scribe Signature: . Attestation: Scribed for Maria Vela by Maria Price NP . 01/22/25 15:00 Parts of this note were created using [employer] voice recognition software program. While efforts were made to correct any mistakes made by this voice recognition software program, nonsensical phrases may remain in this note. In addition, there may be errors and syntax, grammar, content and spelling. MARIA VELA Jan 22, 2025 14:39
[2025-01-22] MEDS ORDERED: HYDROcodone/acetaminophen 5mg/325mg tablet PO ONE (14:40)
== END 2025-01-22 15:01 | disposition home or self-care (01) ==
LOC: ER 12:58
DX: M25.511 Pain in right shoulder (principal); E03.9 Hypothyroidism, unspecified; E78.00 Pure hypercholesterolemia, unspecified; G89.29 Other chronic pain; F32.A Depression, unspecified; Z86.14 Personal history of Methicillin resistant Staphylococcus aureus infection; Z91.040 Latex allergy status; Z88.0 Allergy status to penicillin; Z88.1 Allergy status to other antibiotic agents; Z79.899 Other long term (current) drug therapy; Z98.890 Other specified postprocedural states
CPT/HCPCS: 73030; 99283; A4565